=== PATIENT | female | born 1960 | race Caucasian/White ===

== ENCOUNTER → 2023-03-16 | Outpatient (CLI) | payer SELFPAY ==
--- NOTE | 2023-03-16 21:51 | MR ---
EXAMINATION TYPE: MR lumbar spine wo con DATE OF EXAM: 03/16/2023 8:08 PM CLINICAL INDICATION:Female, 63 years old with history of M54.50 LOW BACK PAIN, UNSPECIFIED, Low back pain that radiates down into outer thighs COMPARISON: None TECHNIQUE: Multi planar, multi sequence imaging was performed utilizing: T1-weighted, T2-weighted, a nd turbo inversion recovery imaging of the lumbar spine. IV Contrast: cc . (None if empty) FINDINGS: Alignment: The lumbar vertebral bodies have preserved heights and alignment. Cord: The conus medullaris and the distal spinal cord appear unremarkable with regards to their signa l intensity and morphology. Bones/Discs: Disc degeneration changes worse at L4-L5 and L5-S1 with associated Modic endplate change s osteophytes and disc space narrowing. There are scattered disc desiccation also present. Mild inver frank recovery bony edema of the adjoining endplates at L4-L5 and L5-S1. T12-L1: No evidence of signif icant spinal canal stenosis or neural foraminal stenosis. L1-L2: No evidence of significant spinal canal stenosis or neural foraminal stenosis. L2-L3: No evidence of significant spinal canal stenosis or neural foraminal stenosis. L3-L4: Eccentric right disc bulge and facet joint arthropathy result in mild spinal canal and mild bi lateral neural foraminal stenosis. L4-L5: Disc bulge and facet joint arthropathy result in mild spinal canal and moderate to severe righ t and mild to moderate left neural foraminal stenosis. L5-S1: The disc is rounded posterior morphology without significant spinal canal stenosis. Facet join t arthropathy with moderate bilateral neural foraminal stenosis. No significant spinal canal or neural foraminal stenosis in the remainder of the visualized levels. Other findings: Hepatic cyst which is high T2 signal. IMPRESSION: 1. No definitive evidence of disc herniation or significant spinal canal stenosis. 2. Mild to moderate L4-L5 and L5-S1 disc degeneration with associated osteoarthritic changes. With m oderate to severe right L4-L5 and moderate bilateral L5-S1 neural foraminal stenosis.
== END | disposition home or self-care (01) ==
LOC: RADMRIMAIN 18:49
PROVIDERS: ATTEND Orthopaedic Surgery
DX: M99.73 Connective tissue and disc stenosis of intervertebral foramina of lumbar region (principal); M51.36 Other intervertebral disc degeneration, lumbar region; M51.37 Other intervertebral disc degeneration, lumbosacral region
CPT/HCPCS: 72148

== ENCOUNTER → 2023-07-11 | Outpatient (CLI) | payer SELFPAY ==
--- NOTE | 2023-07-11 14:45 | P.PAINPG ---
PQRS Measure Charge Sheet Comment: HISTORY OF PRESENT ILLNESS: A 63 yr old female as a referral from Dr Wakefield presents today w severe and chronic LBP x 8 mo secondary to DDD, spondylosis and facet arthropathy without myelopathy for evaluation. Pt states pain level is provoked at 6 /10 in intensity, constant, localized in the lower lumbar spine, predominantly axial, heavy in character w occasional shooting pain towards the LLE. Pain is provoked by walking/ standing for periods > 20 min. Pain is alleviated by PT x 6 wks in Apr- May 2023, ice, medications (Celebrex, Ibu), THC Gummies, repositioning and rest. Oswestry axial pain score at 25. PMH: OA, HTN, GERD, Hyperlipidemia, MDD PSH: R Masectomy, L Knee Arthroscopy, Cholecystectomy SH: Hx of tobacco use, Occasional ETOH use, THC Gummies use FH: Non contributory All: See list Meds: See list REVIEW OF ORGAN SYSTEMS: CONSTITUTIONAL: No fevers or chills. No recent weight loss. NEUROLOGICAL: + numbness and tingling along the distal extremities. No seizure disorders or headaches. MUSCULOSKELETAL: + pain PSYCHIATRIC: Denies current depression or suicidal thoughts. Physical Examinations : Constitutional : Cooperative , not in acute distress . Neurologic : Cranial nerve II to XII intact. No focal neurological deficits. Psychiatric : alert & oriented x 3. Matching mood & appropriate affect. Judgment & insight intact. Musculoskeletal : Cervical Spine Motor strength in the deltoid and biceps: Normal right side. Normal Left side Motor strength biceps and the wrist extensors: Normal right side . Normal left side Motor strength in the triceps muscle: Normal right side. Normal left side Deep tendon reflexes: Normal at the biceps. Normal at Brachioradialis. Normal at triceps Vertebral body tenderness to deep palpation over Cervical facet loading test: positive bilaterally Spurling test: positive bilaterally Neck distraction test: positive bilaterally Latonia sign: positive bilaterally Lumbar spine Motor strength lower extremities ,thigh and legs 5/5 Right side , 5/5 Left side Deep tendon reflexes : Normal Knee Jerk. Normal Ankle Jerk Vertebral body tenderness over L4 Bentley Test positive Lumbar facet Loading Test: positive Right / positive Left Range of motion of the lumbar spine Flexion 30 degrees, extension 10 degrees Straight Leg Raise test: Left/ Right positive at 35 degrees Dayron test: positive right / positive left. Severe tenderness over the Sacroiliac joint on the Right / Left sides Gaenslen test: positive bilaterally Seated flexion test: positive bilaterally. Sacral spine : Severe tenderness over the Sacroiliac joint: right side / left side Range of motion: Flexion of the lumbar spine <60 degrees Range of motion: Extension of the lumbar spine <20 degrees Gaenslen's Test positive Dayron test: positive right side / left side Thigh Thrust Test Sacral Thrust Test Imaging: MRI noncontrast of the lumbar spine from 03/16/23 reviewed Assessment/ Plan : Lumbar DDd Recommendation of GABBIE L4-L5 #1. May need a series of injections for optimal pain relief. Risks, benefits of procedure discussed and patient verbalized understanding. Admits to anti- coagulant use or medical history of diabetes. Protocol for discontinuation/ continuation of medications michael procedure discussed. All questions answered. I have spent greater than 30 minutes on patient care today. Dr Whitfield was available by phone for the evaluation of this patient. The time was used to review the medical records including relevant urine studies and Prescription history (MAPs), review of the available imaging, evaluation and examination of the patient, coordination of care with the medical staff and if applicable referring physicians, as well as creation of the medical record Home Medications: Ambulatory Orders Citalopram Hydrobromide [Citalopram HBr] 20 mg PO 07/11/23 Famotidine 40 mg PO 07/11/23 Metoprolol Succinate [Kapspargo Sprinkle] 25 mg PO DAILY 07/11/23 QUEtiapine [SEROquel] 25 mg PO BID 07/11/23 Rosuvastatin [Crestor] 07/11/23 Venlafaxine HCl [Effexor XR] 37.5 mg PO DAILY 07/11/23 lisinopriL [Prinivil] 20 mg PO 07/11/23 Controlled Substance Measures - Controlled Substance Measures Is patient prescribed a controlled substance at discharge?: No
[2023-07-11 14:49] VITALS: BP 148/76; PULSE 96; RESP 15; TEMP 97.2
== END ==
LOC: PNWHC3 13:43
PROVIDERS: ATTEND Anesthesiology
DX: M47.816 Spondylosis without myelopathy or radiculopathy, lumbar region (principal); M51.36 Other intervertebral disc degeneration, lumbar region
CPT/HCPCS: 99202

== ENCOUNTER 2023-07-26 09:04 | Day surgery (SDC) | payer SELFPAY ==
[2023-07-25 10:10] VITALS: BMI 37.1
[~2023-07-26 09:04] MED LIST: LACTATED RINGERS 1,000 ML IV SCH
[2023-07-26 09:52] VITALS: RESP 16; TEMP 97.6
[2023-07-26] MEDS ORDERED: methylPREDNISolone ACETATE 80 MG/ML 1 ML VIAL ONE (10:05)
[2023-07-26] MEDS ORDERED: ROPIVACAINE 5MG/ML 20ML VIAL ONE (10:05)
[2023-07-26] MEDS ORDERED: IOPAMIDOL M200 10 ML VIAL ONE (10:05)
--- NOTE | 2023-07-26 10:19 | P.PCN ---
Description of Procedure: PREOPERATIVE DIAGNOSIS: 1- Lumbar Degenerative Disc Diseases 2-Lumbar spondylosis with Facet arthropathy without myelopathy. 3-lumbar spinal stenosis POSTOPERATIVE DIAGNOSIS: 1-lumbar degenerative disc disease. 2-lumbar spondylosis with facet arthropathy without myelopathy. 3-lumbar spinal stenosis. PROCEDURE Injection of radio contrast material into L4-5 interspace, interpretation of epidurogram, injection of steroid at L4- 5 epidural space under fluoroscopic guidance. ANESTHESIA: Lidocaine 1% subcutaneously. In OR continuous pulse ox, EKG, blood pressure and verbal communication was maintained with the patient. EBL: Minimal PROCEDURE INDICATION: Before the procedure were discussed with the patient detailed procedure, alternatives, complications including infection, bleeding, nerve damage, paralysis all of which could be permanent. Patient understands and all questions were answered. PROCEDURE DESCRIPTION : After getting consent, patient in OR in prone position. Back was prepped with chlorhexidine and draped in sterile fashion. After injecting 10 mL of 1% lidocaine subcutaneously, a 20-gauge Tuohy needle was introduced at L4 5 interspace with loss of resistance technique using a syringe filled with air. Negative CSF, negative blood, negative paresthesia. Needle position was confirmed with AP and lateral view of the fluoroscope. After repeat negative aspiration 2 mL of Omnipaque 200 water soluble contrast was injected. Contrast was noted in the epidural space. No contrast was noted into intrathecal or intravascular space. After repeat negative aspiration 6 mL solution was injected intermittently which consists of 5 mL of preservative-free normal saline mixed with 1 mL of 80 mg Depo-Medrol. Needle was withdrawn intact. Skin was cleansed and Band-Aids was applied. DISPOSITION / PLANS: The patient tolerated the procedure well. No complication. The patient was placed in a supine position and transferred to the recovery area in a stable condition for observation. There was no evidence of lower extremity motor or sensory deficit after the procedure. Patient was discharged from the recovery room after meeting discharge criteria. Home discharge instructions were given to the patient by the staff. The patient was reexamined prior to discharge. The patient will schedule a follow up in the clinic in 2-4 weeks.
[2023-07-26 10:53] VITALS: BP 130/85; PULSE 66
--- NOTE | 2023-07-26 11:27 | FL ---
EXAMINATION TYPE: FL guided pain mgmt statistic Intraoperative/procedural fluoroscopic services were provided. Total fluoroscopy time is 15.5 seconds with a total of 2 submitted images to PACS. Please s ee the operative/procedural note for further details. DAP: [id number] mGym2
== END 2023-07-26 10:51 | disposition home or self-care (01) ==
LOC: ORPAIN 09:04
PROVIDERS: ATTEND Pain Medicine Interventional Pain Medicine
DX: M51.36 Other intervertebral disc degeneration, lumbar region (principal); M47.816 Spondylosis without myelopathy or radiculopathy, lumbar region; M48.061 Spinal stenosis, lumbar region without neurogenic claudication
CPT/HCPCS: 62323; J1040; Q9966; J2795

== ENCOUNTER → 2023-08-09 | Outpatient (CLI) | payer SELFPAY ==
[2023-08-09 11:38] VITALS: BP 137/82; PULSE 89; RESP 15; TEMP 98.7
--- NOTE | 2023-08-09 14:18 | P.PAINPG ---
PQRS Measure Charge Sheet Comment: HISTORY OF PRESENT ILLNESS: A 63 yr old female presents today w severe and chronic LBP x 8 mo secondary to DDD, spondylosis and facet arthropathy without myelopathy for evaluation s/p GABBIE L4-L5 #1. Pt states she experienced 0 % pain relief s/p procedure. Pt states pain level is provoked at 8 /10 in intensity, constant, localized in the lower lumbar spine, predominantly axial, heavy in character w occasional shooting pain towards the LLE. Pain is provoked by walking/ standing for periods > 20 min. Pain is alleviated by PT x 6 wks in Apr- May 2023, ice, medications, THC Gummies, repositioning and rest. Oswestry axial pain score at 25. Interventional procedures include GABBIE L4-L5 x1 Medications include Celebrex, Ibu, THC Gummies use REVIEW OF ORGAN SYSTEMS: CONSTITUTIONAL: No fevers or chills. No recent weight loss. NEUROLOGICAL: + numbness and tingling along the distal extremities. No seizure disorders or headaches. MUSCULOSKELETAL: + pain PSYCHIATRIC: Denies current depression or suicidal thoughts. Physical Examinations : Constitutional : Cooperative , not in acute distress . Neurologic : Cranial nerve II to XII intact. No focal neurological deficits. Psychiatric : alert & oriented x 3. Matching mood & appropriate affect. Judgment & insight intact. Musculoskeletal : Cervical Spine Motor strength in the deltoid and biceps: Normal right side. Normal Left side Motor strength biceps and the wrist extensors: Normal right side . Normal left side Motor strength in the triceps muscle: Normal right side. Normal left side Deep tendon reflexes: Normal at the biceps. Normal at Brachioradialis. Normal at triceps Vertebral body tenderness to deep palpation over Cervical facet loading test: positive bilaterally Spurling test: positive bilaterally Neck distraction test: positive bilaterally Latonia sign: positive bilaterally Lumbar spine Motor strength lower extremities ,thigh and legs 5/5 Right side , 5/5 Left side Deep tendon reflexes : Normal Knee Jerk. Normal Ankle Jerk Vertebral body tenderness over L4 Bentley Test positive Lumbar facet Loading Test: positive Right / positive Left Range of motion of the lumbar spine Flexion 30 degrees, extension 10 degrees Straight Leg Raise test: Left/ Right positive at 35 degrees Dayron test: positive right / positive left. Severe tenderness over the Sacroiliac joint on the Right / Left sides Gaenslen test: positive bilaterally Seated flexion test: positive bilaterally. Sacral spine : Severe tenderness over the Sacroiliac joint: right side / left side Range of motion: Flexion of the lumbar spine <60 degrees Range of motion: Extension of the lumbar spine <20 degrees Gaenslen's Test positive Dayron test: positive right side / left side Thigh Thrust Test Sacral Thrust Test Imaging: MRI noncontrast of the lumbar spine from 03/16/23 reviewed Assessment/ Plan : Lumbar DDD Recommendation of follow up w Dr Wakefield to explore additional treatment options. Pt prefers that options as she was told she may need surgery. Naproxen 500mg #60 e-script sent. All questions answered. I have spent greater than 30 minutes on patient care today. Dr Whitfield was available by phone for the evaluation of this patient. The time was used to review the medical records including relevant urine studies and Prescription history (MAPs), review of the available imaging, evaluation and examination of the patient, coordination of care with the medical staff and if applicable referring physicians, as well as creation of the medical record - Pain Location Bilateral Lower Back Non-Pharmacological Interventions: Inactivity, Position/Reposition Pharmacological Interventions: Epidural PQRS Narrative: Hx Alcohol Use (MH) No Home Medications: Ambulatory Orders Citalopram Hydrobromide [Citalopram HBr] 20 mg PO DAILY 07/11/23 Famotidine 40 mg PO DAILY 07/11/23 QUEtiapine [SEROquel] 25 mg PO HS 07/11/23 Rosuvastatin [Crestor] 10 mg PO DAILY 07/11/23 Venlafaxine HCl [Effexor XR] 37.5 mg PO DAILY 07/11/23 lisinopriL [Prinivil] 20 mg PO DAILY 07/11/23 Metoprolol Succinate [Metoprolol Succinate ER] 25 mg PO DAILY 07/25/23 Omeprazole 20 mg PO BID 07/25/23 Naproxen [Naprosyn] 500 mg PO BID 30 Days #60 tablet 08/09/23 Controlled Substance Measures - Controlled Substance Measures Is patient prescribed a controlled substance at discharge?: No
== END ==
LOC: PNWHC3 10:34
PROVIDERS: ATTEND Specialist
DX: M51.36 Other intervertebral disc degeneration, lumbar region (principal); F12.90 Cannabis use, unspecified, uncomplicated
CPT/HCPCS: 99211

== ENCOUNTER → 2024-03-20 | Outpatient (CLI) | payer OTHER ==
[2024-03-20 09:37] VITALS: BP 123/85; PULSE 70; RESP 16; TEMP 97.5
--- NOTE | 2024-03-20 14:43 | P.PAINPG ---
PQRS Measure Charge Sheet Comment: HISTORY OF PRESENT ILLNESS: A 64 yr old female presents today w severe and chronic LBP x 8 mo secondary to radiculopathy, spondylosis and facet arthropathy without myelopathy for evaluation. Pt states pain level is provoked at 8 /10 in intensity, constant, localized in the lower lumbar spine, predominantly axial, heavy in character without shooting pain. Pain is provoked by walking/ standing for periods > 20 min. Pain is alleviated by PT x 6 wks in Jun 2023, ice, medications, THC Gummies, repositioning and rest. Interventional procedures include GABBIE L4-L5 x1 Medications include Celebrex, Ibu, THC Gummies use REVIEW OF ORGAN SYSTEMS: CONSTITUTIONAL: No fevers or chills. No recent weight loss. NEUROLOGICAL: + numbness and tingling along the distal extremities. No seizure disorders or headaches. MUSCULOSKELETAL: + pain PSYCHIATRIC: Denies current depression or suicidal thoughts. Physical Examinations : Constitutional : Cooperative , not in acute distress . Neurologic : Cranial nerve II to XII intact. No focal neurological deficits. Psychiatric : alert & oriented x 3. Matching mood & appropriate affect. Judgment & insight intact. Musculoskeletal : Cervical Spine Motor strength in the deltoid and biceps: Normal right side. Normal Left side Motor strength biceps and the wrist extensors: Normal right side . Normal left side Motor strength in the triceps muscle: Normal right side. Normal left side Deep tendon reflexes: Normal at the biceps. Normal at Brachioradialis. Normal at triceps Vertebral body tenderness to deep palpation over Cervical facet loading test: positive bilaterally Spurling test: positive bilaterally Neck distraction test: positive bilaterally Latonia sign: positive bilaterally Lumbar spine Motor strength lower extremities ,thigh and legs 5/5 Right side , 5/5 Left side Deep tendon reflexes : Normal Knee Jerk. Normal Ankle Jerk Vertebral body tenderness over L4 Bentley Test positive Lumbar facet Loading Test: positive Right / positive Left L4-L5/ L5-S1 Range of motion of the lumbar spine Flexion 30 degrees, extension 10 degrees Straight Leg Raise test: Left/ Right positive at 35 degrees Dayron test: positive right / positive left. Severe tenderness over the Sacroiliac joint on the Right / Left sides Gaenslen test: positive bilaterally Seated flexion test: positive bilaterally. Sacral spine : Severe tenderness over the Sacroiliac joint: right side / left side Range of motion: Flexion of the lumbar spine <60 degrees Range of motion: Extension of the lumbar spine <20 degrees Gaenslen's Test positive Dayron test: positive right side / left side Thigh Thrust Test Sacral Thrust Test Imaging: MRI noncontrast of the lumbar spine from 02/09/24 reviewed Assessment/ Plan : Lumbar radiculopathy Recommendation of TORIE MBB L4-L5/ L5-S1 #1. Risks, benefits of procedure discussed and patient verbalized understanding. Protocol for discontinuation/continuation of medication surrounding procedure discussed. Minimal anesthesia, including Fentanyl and Versed, if clinically indicated. All questions answered. I have spent greater than 30 minutes on patient care today. Dr Whitfield was available by phone for the evaluation of this patient. The time was used to review the medical records including relevant urine studies and Prescription history (MAPs), review of the available imaging, evaluation and examination of the patient, coordination of care with the medical staff and if applicable referring physicians, as well as creation of the medical record PQRS Narrative: Hx Alcohol Use (MH) No Home Medications: Ambulatory Orders Citalopram Hydrobromide [Citalopram HBr] 20 mg PO DAILY 07/11/23 Famotidine 40 mg PO DAILY 07/11/23 QUEtiapine [SEROquel] 25 mg PO HS 07/11/23 Rosuvastatin [Crestor] 10 mg PO DAILY 07/11/23 Venlafaxine HCl [Effexor XR] 37.5 mg PO DAILY 07/11/23 lisinopriL [Prinivil] 20 mg PO DAILY 07/11/23 Metoprolol Succinate [Metoprolol Succinate ER] 25 mg PO DAILY 07/25/23 Omeprazole 20 mg PO BID 07/25/23 Naproxen [Naprosyn] 500 mg PO BID 30 Days #60 tablet 08/09/23 Controlled Substance Measures - Controlled Substance Measures Is patient prescribed a controlled substance at discharge?: No
== END | disposition home or self-care (01) ==
LOC: PNWHC3 09:18
PROVIDERS: ATTEND Specialist
DX: M47.26 Other spondylosis with radiculopathy, lumbar region (principal); M46.96 Unspecified inflammatory spondylopathy, lumbar region
CPT/HCPCS: 99211

== ENCOUNTER 2024-07-11 11:17 | Day surgery (SDC) | payer BC, OTHER ==
[2024-07-11 11:51] VITALS: TEMP 97
[2024-07-11] MEDS: LACTATED RINGERS 1,000 ML IV SCH (11:59)
[2024-07-11] MEDS: IV FLUID CONTINUATION 1,000 ML IV ONE ×2 (11:59→12:54)
[2024-07-11] MEDS ORDERED: fentaNYL (PF) 50 MCG/ML 2 ML AMP ONE (12:28)
[2024-07-11] MEDS ORDERED: MIDAZOLAM 2 MG/2 ML VIAL ONE (12:28)
[2024-07-11] MEDS ORDERED: ROPIVACAINE 5MG/ML 20ML VIAL ONE (12:28)
--- NOTE | 2024-07-11 12:53 | P.PCN ---
Date of Procedure: 07/11/24 Procedure(s) Performed: PREOPERATIVE DIAGNOSIS : 1- Lumbar spondylosis with Facet Arthropathy with out myelopathy . 2- Lumber degenerative disc disease POSTOPERATIVE DIAGNOSIS: 1- Lumbar spondylosis with Facet Arthropathy without myelopathy . 2- Lumber degenerative disc disease PROCEDURE: Diagnostic bilateral L3 , L4 , and L5 medial branch block under fluoroscopy guidance(fluoroscopy images available in the rad Dept) ( To target the facet joint between Bilateral L4-5 , and L5-S1 ) ANESTHESIA: moderate sedation with intravenous Versed 2 mg and Fentanyl 100 mcg.(sedation start time 12:34, ended at 12:46 ) EBL: Minimal COMPLICATION: None PROCEDURE INDICATION: Chronic low back pain secondary to Facet arthropathy unresponsive to conservative treatment. PROCEDURE DESCRIPTION: the patient was seen and identified in the preop holding area , risks and benefits and possible complications of the procedure and alternative were discussed with the patient, and the patient agreed to proceed with the procedure and signed the consent and vital signs monitored during the procedure and fluoroscopy was used to maximize the benefit and accuracy of the needle placement, and sedation was given to decrease patient anxiety, patient was taken to the procedure room and placed in prone position vital signs monitored in the back prepped with chlorhexidine X3 then under strict sterile technique using a right oblique fluoroscopy ,the junction of the transverse process and the superior articulating process of the right L3 , L4 , and L5 vertebra which corresponding to the fluoroscopy image of the eye of the Veto dog on the block side for the medial branches and subsequently , after local infiltration of skin and subcu tissuies with Ropivacaine 0.5 % , one mL at each level ,then 22-gauge Quincke-type 5 inches long needles , 3 needle was used , each one of them placed at the junction of the base of the transverse process and the superior articular process at the appropriate level, and the needle was advanced until the periosteum contacted, needle placement confirmed with AP oblique and lateral view and after appropriate needle placement confirmed, and after negative aspiration for heme and CSF and there was no paresthesia 1-1/2 mL of Ropivacaine 0.5% , then half mL injected at each level after negative aspiration the needle subsequently removed and the same procedure repeated for the left side at left side at L3 , L4 and L5 levels. At the end of the procedure and the needles removed and a bandage applied after the skin was cleaned the cleaning solution patient taken to recovery room in stable condition and monitors in the recovery room for 20-30 minutes and discharged home in stable condition after discharge criteria met and patient will follow up with the pain clinic in 2-4 weeks
[2024-07-11 13:04] VITALS: PULSE 79
--- NOTE | 2024-07-11 13:11 | FL ---
EXAMINATION TYPE: FL guided pain mgmt statistic DATE OF EXAM: 07/11/2024 FLUOROSCOPY 12 SEC FLUORO, DAP .[id number] mGym2 Images during bilateral lumbar facet blocks 4 images are submitted. [facility], Workstation: [email or web address] MetricsFRANKLYN, 07/11/2024 1:08 PM
[2024-07-11 13:19] VITALS: BP 113/79; RESP 16
== END 2024-07-11 13:37 | disposition home or self-care (01) ==
LOC: ORPAIN 11:17
PROVIDERS: ATTEND Specialist
DX: M47.816 Spondylosis without myelopathy or radiculopathy, lumbar region (principal); M51.369 Other intervertebral disc degeneration, lumbar region without mention of lumbar back pain or lower extremity pain; G89.29 Other chronic pain; Z79.1 Long term (current) use of non-steroidal anti-inflammatories (NSAID); Z85.3 Personal history of malignant neoplasm of breast
CPT/HCPCS: 64493; 64494 ×2; 99152; J2250; J3010; J2795

== ENCOUNTER → 2024-08-04 | Outpatient (CLI) | payer BC ==
[2024-08-04 10:07] VITALS: BP 140/88; PULSE 70; RESP 18; TEMP 97.6
--- NOTE | 2024-08-04 15:33 | P.PAINPG ---
Objective - Vital Signs Vital signs: Vital Signs Temp 97.6 F 08/04/24 10:05 Pulse 70 08/04/24 10:05 Resp 18 08/04/24 10:05 BP 140/88 08/04/24 10:05 Pulse Ox 97 08/04/24 10:05 FiO2 Intake & Output 08/03/24 08/04/24 08/04/24 18:59 06:59 18:59 Weight 108.409 kg PQRS Measure Charge Sheet Mode of Arrival: Ambulatory Comment: HISTORY OF PRESENT ILLNESS: A 64 yr old female presents today w severe and chronic LBP x 8 mo secondary to radiculopathy, spondylosis and facet arthropathy without myelopathy for evaluation s/p BL MBB L4-L5/ L5-S1 #1. Pt states she experienced 0% pain relief s/p procedure. Pt states pain level is provoked at 8 /10 in intensity, constant, localized in the lower lumbar spine, predominantly axial, heavy in character without shooting pain. Pain is provoked by walking/ standing for periods > 20 min. Pain is alleviated by PT x 6 wks in Jun 2023, physician guided home exercise lumbar program 4-5 times weekly since Jun 2023, ice, medications, THC Gummies, repositioning and rest. Interventional procedures include GABBIE L4-L5 x1, BL MBB L3-L5 x1 Medications include Celebrex, Ibu, THC Gummies REVIEW OF ORGAN SYSTEMS: CONSTITUTIONAL: No fevers or chills. No recent weight loss. NEUROLOGICAL: + numbness and tingling along the distal extremities. No seizure disorders or headaches. MUSCULOSKELETAL: + pain PSYCHIATRIC: Denies current depression or suicidal thoughts. Physical Examinations : Constitutional : Cooperative , not in acute distress . Neurologic : Cranial nerve II to XII intact. No focal neur ological deficits. Psychiatric : alert & oriented x 3. Matching mood & appropriate affect. Judgment & insight intact. Musculoskeletal : Cervical Spine Motor strength in the deltoid and biceps: Normal right side. Normal Left side Motor strength biceps and the wrist extensors: Normal right side . Normal left side Motor strength in the triceps muscle: Normal right side. Normal left side Deep tendon reflexes: Normal at the biceps. Normal at Brachioradialis. Normal at triceps Vertebral body tenderness to deep palp ation over Cervical facet loading test: positive bilaterally Spurling test: positive bilaterally Neck distraction test: positive bilaterally Latonia sign: positive bilaterally Lumbar spine Motor strength lower extremities ,thigh and legs 5/5 Right side , 5/5 Left side Deep tendon reflexes : Normal Knee Jerk. Normal Ankle Jerk Vertebral body tenderness over L4 Bentley Test positive Lumbar facet Loading Test: positive Right / positive Left L4-L5/ L5-S1 Range of motion of the lumbar spine Flexion 30 degrees, extension 10 degrees Straight Leg Raise test: Left/ Right positive at 35 degrees Dayron test: positive right / positive left. Severe tenderness over the Sacroiliac joint on the Right / Left sides Gaenslen test: positive bilaterally Seated flexion test: positive bilaterally. Sacral spine : Severe tenderness over the Sacroiliac joint: right side / left side Range of motion: Flexion of the lumbar spine <60 degrees Range of motion: Extension of the lumbar spine <20 degrees Gaenslen's Test positive Dayron test: positive right side / left side Thigh Thrust Test Sacral Thrust Test Imaging: MRI non contrast of the lumbar spine from 02/09/24 reviewed Assessment/ Plan : Lumbar radiculopathy Recommendation of follow up w Dr Wakefield to explore additional treatment options. Script for PT w traction x 6 wks M54.16. All questions answered. I have spent greater than 30 minutes on patient care today. Dr Whitfield was available by phone for the evaluation of this patient. The time was used to review the medical records including relevant urine studies and Prescription history (MAPs), review of the available imaging, evaluation and examination of the patient, coordination of care with the medical staff and if applicable referring physicians, as well as creation of the medical record - Pain Location Lower Back Non-Pharmacological Interventions: Inactivity, Sitting PQRS Narrative: Blood Pressure 140/88 Pain Intensity [Lower Back] 8 Scale Used Numeric (1 - 10) Hx Alcohol Use (MH) No Home Medications: Ambulatory Orders Venlafaxine HCl [Effexor XR] 75 mg PO BID 07/11/23 lisinopriL [Prinivil] 20 mg PO DAILY 07/11/23 Metoprolol Succinate [Metoprolol Succinate ER] 25 mg PO DAILY 07/25/23 Omeprazole 20 mg PO BID 07/25/23 Ibuprofen [Motrin Ib] 600 mg PO Q8H 07/10/24 Controlled Substance Measures - Controlled Substance Measures Is patient prescribed a controlled substance at discharge?: No
== END ==
LOC: PNWHC3 09:52
PROVIDERS: ATTEND Specialist
DX: M54.16 Radiculopathy, lumbar region (principal)
CPT/HCPCS: 99211

== ENCOUNTER → 2024-11-07 | Day surgery (SDC) | payer BC ==
[2024-11-04 11:54] VITALS: BMI 38.0
[~2024-11-07] MED LIST changes: +GLYCOPYRROLATE 0.2 MG/ML 2 ML VIAL ONE; +HYDROmorphone 0.5 MG/0.5 ML SYRINGE IVP PRN; +KETOROLAC 15 MG/ML 1 ML VIAL ONE; +LIDOCAINE 1% INJ 10MG/ML (20 ML MDV) ONE; +LIDOCAINE 4% LTA KIT (4 ML) TOPICAL ONE; +MIDAZOLAM 2 MG/2 ML VIAL IV PRN; +MIDAZOLAM 2 MG/2 ML VIAL ONE; +NEOSTIGMINE 1 MG/ML 10 ML VIAL ONE; +PHENYLEPHRINE-0.9% NACL SYG 1,000 MCG/10 ML SYRINGE ONE; +PROPOFOL 10 MG/ML 20 ML VIAL IV ONE; +Pre Op ABX Message 1 EACH MISC MISCELLANE ONE; +ROCURONIUM 10 MG/ML (5 ML VIAL) IV ONE; +SUCCINYLCHOLINE CHLORIDE 200 MG/10 ML VIAL IV ONE; +TRANEXAMIC 1,000 MG/100ML-NACL 1,000 MG in SALINE 1 100ML.BAG IVPB PRN; +TRANEXAMIC 1,000 MG/100ML-NACL PREMIX BAG ONE; +WATER FOR INJECTION, STERILE 10 ML VIAL IV ONE; +ceFAZolin 2 GM in DEXTROSE 5% IN WATER 50 ML IVPB ONE; +ePHEDrine 50 MG/ML 1 ML VIAL ONE; +fentaNYL (PF) 50 MCG/ML 2 ML AMP ONE
--- NOTE | 2024-11-07 11:39 | P.HPOR ---
History of Present Illness H&P Date: 11/07/24 .D:Date: 09/10/24 : 09:59am .T:Title: [facility] [address] [place] [id number]| PROVIDER: VANNA KAHN DO CLINICAL SUMMARY: Ms. Guzman presents for follow-up evaluation of chronic low back pain, status post L4-S1 facet joint injections performed at [facility]. Patient reported >50% improvement in symptoms for approximately 1.5 days post-injection before return of baseline pain. Initial therapeutic response suggests facetogenic etiology of pain. Current VAS pain score is 6/10, aggravated by movement and ambulation, with recent onset of increased nocturnal pain. Patient denies bowel/bladder dysfunction, perineal numbness, or new neurological symptoms. Imaging demonstrates moderate to severe L4-S1 facet arthrosis with osteophytic changes, preserved disc heights, moderate dehydration, without evidence of stenosis or herniation. Following detailed discussion of treatment options, patient elects to proceed with L4-S1 medial branch transection under direct visualization rather than radiofrequency ablation, with full understanding of associated risks and benefits. CHEIF COMPLAINT: (cc) * DOI: NA * DOS: NA * PO NA * VAS: 6 HISTORY: Pt presents today for follow up from their low back after injections at the [facility]R clinic of L4-S1 facet joints. Pt did get >50% relief of sx with these injections for about1.5 days and then all of her sx returned. For that day however, she was very pleased and wouldl ruth to explore a more permanent solution to this issue. Denies any further trauam. Moving and walking aggravates. RResting helps, but she is getting more night pain now than before. Deneis any other sx. Otherwise patient is very pleased with their progress since the time of their procedure and denies any f/c/sob/cp, perineal numbness and tinlging, bowel or bladder incontinence/retention. * The patients' past social, medical, family, surgical history, as well as review of systems, have been reviewed. Please refer to the Neurosurgery History and Physical form that has been scanned in to our electronic medical record system. * 16 points review of systems completed and as stated in HPI, all other systems reviewed are negative. PHYSICAL EXAMINATION: On examination today, the patient is alert and oriented times three, in no acute distress, appearing well nourished and well hydrated with overall alignment well maintained. Functionally, the patient demonstrates independent [id number]-us-[id number] transition in less than 5 seconds and ambulates without assistive devices. The surgical incision is healing appropriately without signs of infection, and the dressing is clean, dry, and intact. There is no erythema, edema, or ecchymosis noted. Minor tenderness to palpation is present around the incision site. Musculoskeletal examination reveals full range of motion in all major joints without restriction or pain, with 5/5 strength in all major muscle groups of bilateral upper and lower extremities. Neurologically, sensation is intact to light touch throughout C3-T1 and L2-S1 dermatomes, with 2/4 reflexes in bilateral upper and lower extremities. Almonte's, clonus, Babinski, and Enid's signs are all negative, with no tensioning signs present. Cranial nerves II-XII are grossly intact. Vascular examination demonstrates 2/4 distal pulses in all four extremities without edema, and compartments are soft and compressible. The abdomen is soft and non-tender to palpation, with normal, non-labored respirations noted. IMAGING: No new imaging. Previous reviwed demonstrates L4-S1 facet arthrosis that is moderate to severe with overgrowth, osteophytes and good disc heights with moderate dehydration and no stenosis or herniation. ASSESSMENT: 1. L4-S1 FACET ARTHROSIS, MODERATE TO SEVERE 2. LOW BACK PAIN 3. L4-S1 SPONDYLOSIS W/O RADICULOPATHY PLAN: Activity: -Continue to progress activity as tolerated. -Limit BLTPP to less than >20 LBS ABLE -Ambulate daily, aim for 1-2 sessions per hour of ambulation to start. Advance as able. -Use cane, walker etc. as needed for safety. Do not fall. -Do not drive until safe to do so (usually 6-8 weeks post op) and off all sedative and narcotic medications. Therapies: - CONT PT ABLE AND NEEDED -Ice for pain and swelling control. -Follow balanced diet of protein, carbs and fats which are essential for healing. -Supplement with Vit D, Vit C and Calcium as well as multivitiam for healing. - Medications: -Rx: NO NEW TODAY -CONTINUE PREVIOUS REGIMENT SURGICAL RECOMMENDATION: * WE DISCUSSED DIFFERENT OPTIONS FOR SURGERY INCLUDING NON-OP AND OPERATIVE INTERVENTIONS WE DISCUSSED L4-S1 MEDIAL BRANCH TRANSECTION UNDER DIRECT VISUALIZATION VS RFA. SHE WOULD LIKE TO PURUE MBT AT THIS TIME. RISKS AND BENEFITS OF THE PROCEDURE WERE DISCUSED AT LENGTH WITH THE PATIENT INCLUDING BUT NOT LIMITED TO RISK OF BLEEDING, INFECTION, DAMAGE TO TISSUES, NERVE DAMAGE, RISK OF ANESTHESIA UP TO AND INCLUDING . SHE WAS WILLING TO ASSUME THESE RISKS AND ALL THE RISKS OF SURGERY. SHE WOULD LIKE TO PROCEED WITH SCHEDULING L4-S1 BILATERAL MBT AT THIS TIME. MEDICAL NECESSITY NOTE: Patient demonstrates clear indications for L4-S1 medial branch transection based on documented chronic low back pain refractory to conservative management, with diagnostic facet joint injections providing >50% temporary pain relief confirming facetogenic etiology. Advanced imaging demonstrates moderate to severe L4-S1 facet arthrosis with osteophytic changes, correlating with clinical presentation. Patient's pain significantly impacts daily function, with current VAS score of 6/10, and symptoms are progressively worsening with new onset of nocturnal pain. Previous less invasive interventions, including facet injections, have provided only temporary relief, justifying progression to definitive intervention. SURGICAL RATIONALE NOTE: L4-S1 medial branch transection under direct visualization is deemed the most appropriate surgical intervention for this patient based on several factors: 1) Confirmed facetogenic pain through positive diagnostic blocks, 2) Anatomically concordant imaging findings of facet arthrosis, 3) Failure of conservative measures and temporary nature of injectable therapies, and 4) Patient's preference for definitive treatment over repeated radiofrequency ablation procedures. Direct visualization technique is selected over conventional radiofrequency ablation to ensure precise anatomical targeting and complete neurotomy of the medial branches, potentially providing longer-lasting relief compared to conventional RF approaches FOLLOW UP: Post op NEXT VISIT: (REVIEW XRAYS, RECHECK ETC) PATIENT EDUCATION: Medications Reviewed: YES In our visit today Ms. Guzman and I have had a chance to go over my understanding of the patient's current condition, the natural course history without intervention and various interventional options. Questions were invited and answered, and the patient wishes to proceed as outlined above. I will be sure to keep you updated after Ms. Guzman returns here for further follow-up. Thank you again for your referral. Please do not hesitate to contact me if you have any further questions. Signed and authenticated by: Vanna Rothman [facility] [address] [place] [address] This message is confidential, intended only for the named recipient(s) and may contain information that is privileged or exempt from disclosure under applicable law. If you are not the intended recipient(s), you are notified that the dissemination, distribution or copying of this information is strictly prohibited. If you received this message in error, please notify the sender then delete this message. # SIGNED BY Vanna Kahn (GOO)09/19/2024 11:32AM Past Medical History Past Medical History: Cancer, Chest Pain / Angina, GERD/Reflux, Hyperlipidemia, Hypertension, Sleep Apnea/CPAP/BIPAP Additional Past Medical History / Comment(s): Rt. breast cancer 2009 no chemo no radiation, upset stomach and frequent nausea for several years, chronic generalized pain, low back pain since September 2022, CPAP use. Chest pain-Had EKG and Triponins -neg. Arthritis History of Any Multi-Drug Resistant Organisms: None Reported Past Surgical History: Breast Surgery, Cholecystectomy, Hysterectomy, Orthopedic Surgery, Tonsillectomy Additional Past Surgical History / Comment(s): Right mastectomy, left knee surgery. "Fatty tumor removed from lt arm." Past Anesthesia/Blood Transfusion Reactions: No Reported Reaction Additional Past Anesthesia/Blood Transfusion Reaction / Comment(s): No hx of blood transfusion to date. Smoking Status: Former smoker - Past Family History Father Family Medical History: Cancer Additional Family Medical History / Comment(s): Leukemia, Rectal cancer, Prostate Medications and Allergies Home Medications Medication Instructions Recorded Confirmed Type Venlafaxine HCl [Effexor XR] 75 mg PO BID 07/11/23 11/04/24 History lisinopriL [Prinivil] 20 mg PO QAM 07/11/23 11/04/24 History Metoprolol Succinate [Metoprolol 25 mg PO QAM 07/25/23 11/04/24 History Succinate ER] Omeprazole 20 mg PO BID 07/25/23 11/04/24 History Ibuprofen [Motrin Ib] 600 mg PO Q8H 07/10/24 11/04/24 History Allergies Allergy/AdvReac Type Severity Reaction Status Date / Time No Known Allergies Allergy Verified 11/07/24 11:38 Physical Examination Osteopathic Statement: *. No significant issues noted on an osteopathic structural exam other than those noted in the History and Physical/Consult.
[2024-11-07] MEDS: ONDANSETRON 4 MG/2 ML VIAL IVP PRN (12:05)
[2024-11-07] MEDS: GABAPENTIN 300 MG CAP PO PRN (12:05)
[2024-11-07] MEDS: ACETAMINOPHEN TAB 500 MG TAB PO PRN (12:05)
[2024-11-07] MEDS: IV FLUID CONTINUATION 1,000 ML IV ONE (12:17)
[2024-11-07] MEDS: LIDOCAINE 2%-EPI 1:100,000 20 ML VIAL SQ ONE ×2 (12:37→13:15)
[2024-11-07] MEDS: SODIUM CHLORIDE 0.9% 50 ML with ceFAZolin 2,000 MG IV ONE (12:37)
[2024-11-07] MEDS: BUPIVACAINE (PF) 0.5% 30 ML VIAL SQ ONE ×2 (12:37→13:16)
[2024-11-07 14:26] VITALS: TEMP 97
--- NOTE | 2024-11-07 15:16 | XR ---
EXAMINATION TYPE: XR lumbar spine 2 or 3V, FL guidance operating room DATE OF EXAM: 11/07/2024 FLUOROSCOPY DAP 28.706 FL 54.9 FL FACET ATHROSIS 5 images are submitted. [facility], , 11/07/2024 3:13 PM
[2024-11-07] MEDS: HYDROcodone/APAP 7.5-325MG 1 EACH TAB PO ONE (16:01)
[2024-11-07 17:01] VITALS: BP 118/63; PULSE 77; RESP 16
--- NOTE | 2024-11-17 16:14 | P.OP ---
Date of Procedure: 11/07/24 Preoperative Diagnosis: 1. L4-S1 BILATERAL FACET ARTHROPATHY, SEVERE 2. LOW BACK PAIN 3. LUMBAR SPONDYLOSIS WITHOUT RADICULOPATHY Postoperative Diagnosis: 1. L4-S1 BILATERAL FACET ARTHROPATHY, SEVERE 2. LOW BACK PAIN 3. LUMBAR SPONDYLOSIS WITHOUT RADICULOPATHY Procedure(s) Performed: 1. L4-5 CAROLINE L5-S1 BILATERAL MEDIAL BRANCH TRANSECTION UNDER DIRECT VISUALIZATION ENDO Implants: NONE Anesthesia: GETA (Ms. Guzman presents for follow-up evaluation of chronic low back pain, status post L4-S1 facet joint injections performed at [facility] clinic. Patient reported >50% improvement in symptoms for approximately 1.5 days post- injection before return of baseline pain. Initial therapeutic response suggests f) Surgeon: Regulo Wakefield Gift Manager #1: Gilberto Chong (WAS PRESENT AND ASSISTED WITH ALL ASPECTS OF THE CASE FROM POSITION TO DRESSING PLACEMENT) Estimated Blood Loss (ml): 5 IV fluids (ml): 500 Urine output (ml): 0 Pathology: none sent Condition: stable Disposition: PACU Indications for Procedure: Ms. Guzman presents for follow-up evaluation of chronic low back pain, status post L4-S1 facet joint injections performed at [facility] clinic. Patient reported > 50% improvement in symptoms for approximately 1.5 days post-injection before return of baseline pain. Initial therapeutic response suggests facetogenic etiology of pain. Current VAS pain score is 6/10, aggravated by movement and ambulation, with recent onset of increased nocturnal pain. Patient denies bowel/bladder dysfunction, perineal numbness, or new neurological symptoms. Imaging demonstrates moderate to severe L4-S1 facet arthrosis with osteophytic changes, preserved disc heights, moderate dehydration, without evidence of stenosis or herniation. Following detailed discussion of treatment options, patient elects to proceed with L4-S1 medial branch transection under direct visualization rather than radiofrequency ablation, with full understanding of associated risks and benefits. Description of Procedure: BILATERAL L4-S1 ENDOSCOPIC MBT The patient was seen and examined in the preoperative area. All preoperative protocols were followed. Informed consent was obtained, risks and benefits of the procedure were discussed at length. Risks including bleeding, infection, damage to the surrounding tissue and risk of reoperation were discussed with the patient. Risk of anesthesia up to and including was discussed with the patient. These are outlined in the risk review. They were willing to accept these risks and all of the risks of surgery. The patient was given a weight- based dose of antibiotics in the form of 2 g Ancef. The patient was seen and evaluated by the anesthesia team who deemed them fit for surgery. The sites were marked, the patient was willing to proceed with the procedure. The patient was transferred to the operative suite by the Department of anesthesia. They were then drifted off to sleep by the department anesthesia and GETA was performed. The patient tolerated this well. Once confirmation of lines and ventilation the patient was transferred to a prone Clemente table very carefully. All bony prominences including wrists, elbows, axilla, chest, hips, and thighs, and feet were padded very well. Special attention was paid to the genitalia and these were padded accordingly. SCDs were placed on bilateral lower extremities and were connected. Arms were well padded and placed on arm boards up and out in the 90/90 position. Once in position, again we confirmed good ventilation capabilities and that lines were running appropriately. The patient's lumbar spine was then exposed. 1010s were placed outlining the incision sites. Standard alcohol was used to clean the incision sites and allowed to dry. C-arm was used to biomark the patient and confirm levels for incision which were marked with a skin marker. Operative briefing was performed with all teams and everyone in agreement to proceed. The patient was then prepped and draped in a normal sterile fashion. Timeout was then performed and all parties were in agreement with the procedure to be performed. Starting on the right side, an 18-gauge needle was used to localize the L4-L5 and L5-S1 facet joints. Lidocaine 2% with epi and Marcaine .25% w/o placed in these areas. Skin nicks were then made and a trocar for the scope was entered. X-ray used to localize these areas. Once this was confirmed, accessory portals were made and trocars placed through here. We then used the ArthroCare wand to skeletonize the transverse processes on the right-hand side at L4-L5 and L5-S1 as well as sacral ala. This was then followed out medially until the L4-L5 and L5-S1 facet joints medially and mamillary processes were identified as well as the ligaments in these areas. Nerves were identified at L4-L5 and L5-S1 levels and visualized directly when they were transected. ArthroCare wand was then used to burn the areas to retract the nerve ends. The procedure was then repeated on the left side in identical fashion at L4-L5 and L5-S1 levels. The scope was lavaged with pictures taken in these areas and inspected; there was no damage or issues and no bleeding. The scopes were removed. The wounds were then cleaned and simple stitches were placed in the skin and they were glued. These were then dressed sterilely with Band-Aids. The patient was transferred back to their hospital bed atraumatically. Patient was then awakened and extubated by the department of anesthesia having tolerated the procedure very well with no complications. They were transferred to the post operative care unit in stable condition.
== END | disposition home or self-care (01) ==
LOC: OR 11:02
PROVIDERS: ATTEND Orthopaedic Surgery
DX: M47.817 Spondylosis without myelopathy or radiculopathy, lumbosacral region (principal); M46.96 Unspecified inflammatory spondylopathy, lumbar region; E86.0 Dehydration; E78.5 Hyperlipidemia, unspecified; G47.30 Sleep apnea, unspecified; G89.29 Other chronic pain; I10 Essential (primary) hypertension; Z87.891 Personal history of nicotine dependence
CPT/HCPCS: 86900; 86901; 86850; 72100; 64722; J2250; J0330; J2710; J2405; J0690; J2003; J3010; J1885; J2704; J2371; J0665; J1596